=== PATIENT | male | born 1935 | race Caucasian/White ===

== ENCOUNTER 2021-04-16 06:31 | Day surgery (SDC) | payer MEDICARE, OTHER ==
[~2021-04-16] VITALS: Ht 160 cm; Wt 58.0 kg
[2021-04-16] MEDS ORDERED: BENZOCAINE 20% 50 MCG/SPRAY 57 GM TP ONE (06:32)
[2021-04-16] MEDS ORDERED: LIDOCAINE 2% 30 ML JELLY TP ONE (06:32)
[2021-04-16] MEDS ORDERED: LIDOCAINE 4% 50 ML SOLUTION TP ONE (06:32)
[2021-04-16] MEDS ORDERED: ALBUTEROL SULFATE 2.5 MG/0.5 ML NEB SOLUTION NEB ONE (06:32)
[2021-04-16] MEDS ORDERED: EPINEPHrine 1:1,000 [1 MG/ML] AMP ET ONE (06:32)
[2021-04-16] MEDS ORDERED: SODIUM CHLORIDE 0.9% 1,000 ML ONE (06:58)
[2021-04-16 07:15] LABS: COVID AG,FIA SOURCE NASOPHARYNGEAL
[2021-04-16] MEDS ORDERED: MIDAZOLAM HCL 5 MG/ML VIAL ONE (07:29)
[2021-04-16] MEDS ORDERED: FentaNYL CITRATE PF 100 MCG/2 ML VIAL ONE (07:29)
[2021-04-16] MEDS ORDERED: SODIUM CHLORIDE 0.9% 1,000 ML IV ONE (08:00)
[2021-04-16 08:08] LABS: GLUCOMETER DEV NAME(LOC) SDS.; GLUCOSE,POINT OF CARE 164 MG/DL (70-110)
[2021-04-16] MEDS ORDERED: MethylPREDNISolone SOD SUCC 125 MG/2 ML VIAL ONE (08:55)
[2021-04-16] MEDS ORDERED: MethylPREDNISolone SOD SUCC 125 MG/2 ML VIAL IVP ONE (09:30)
== END 2021-04-16 11:45 | disposition home or self-care (01) ==
LOC: SURGERY 06:31
PROVIDERS: ATTEND Internal Medicine Critical Care Medicine
DX: J38.4 Edema of larynx (principal); B37.0 Candidal stomatitis; E11.9 Type 2 diabetes mellitus without complications; Z79.899 Other long term (current) drug therapy; I10 Essential (primary) hypertension; Z98.890 Other specified postprocedural states
CPT/HCPCS: 31623; 31624; 71045; 82962; 87015; 87070; 87077; 87101; 87186; 87205; 87206; 87220; 87426; 88108; 88184; 88185; 88312; C9803; J0171; J2250; J2930; J3010; J7030; J7613; Z7610